=== PATIENT | female | born 1955 | race Caucasian/White ===

== ENCOUNTER 2017-10-21 12:16 | Emergency (ER) | payer MEDICAID, SELFPAY ==
--- NOTE | 2017-10-21 12:52 | XR_ITS ---
XR ankle LT min 3V HISTORY: Pain following injury ITS.REASON: TWISTED ANKLE STEPPING OFF OF PORCH ORDERING PHYSICIAN: Lisbeth Alberto PATIENT AGE: 62 years COMPARISON: None FINDINGS: Nondisplaced acute avulsion fracture involves the tip of the lateral malleolus with mild overlying soft tissue swelling. The fractures transverse in nature. No other significant anomalies are evident. IMPRESSION: Nondisplaced transverse fracture at the tip of the lateral malleolus.
--- NOTE | 2017-10-21 12:57 | PC.NURSE ---
RADIOLOGY CALLED AT THIS TIME
[2017-10-21 13:12] VITALS: BP 148/88; PULSE 74; RESP 18; TEMP 36.8; O2SAT 98; BMI 22.3
--- NOTE | 2017-10-21 13:18 | HMH.EDUTC ---
[facility] [place] Disposition Clinical Impression: Fracture of distal end of fibula Qualifiers: Encounter type: initial encounter Fracture type: closed Fracture morphology: other fracture Laterality: left Qualified Code(s): S82.832A - Other fracture of upper and lower end of left fibula, initial encounter for closed fracture Disposition: Home, Self-Care Condition on Discharge: Good Instructions: How to Use Crutches, How To Perform RICE (Rest, Ice, Compress, Elevate), How to Take Care of Your Splint Additional Instructions: * nonweight bearing until follow up with Dr. Chris * Rest * ice 15-20 mins 3-4 times a day * Splint to remain in place until you see Dr. Chris. Remember to check circulation like we discussed as the more you swell, the tighter your splint can get. * Elevate, elevate, elevate as discussed as much as possible to help reduce swelling and therefore, pain * naproxen every 12 hours as needed for pain and inflammation. If you need something more, you can take tylenol every 4 hours as needed as long as your primary care provider has told you it is ok to take both. * No additional anti-inflammatories like motrin, aleve, advil with the above amount of naproxen. You CAN still take Tylenol every 4 hours as needed if you need something more for pain. Prescriptions: Naproxen 500 mg PO BID PRN #28 tab PRN Reason: Moderate Pain Referrals: Yuliya Chris DPM [Physician] - (Stop by her office on your way out of the hospital today. I spoke to Ismael. Tell them you just left [facility], have a distal fibula fracture and want to follow up with Dr. Chris. Over the weekend, return to [facility] for any difficulty/complications with splint/circulation as we discussed.) Medical Decision Making - Moises Inquiry Pt receiving controlled substance: No Vital Signs: 10/21/17 13:12 10/21/17 15:12 Temperature 98.3 F 98.3 F Temperature Source Temporal Artery Scan Temporal Artery Scan Pulse Rate 74 Pulse Rate [Brachial] 74 Respiratory Rate 18 18 Blood Pressure 148/88 Blood Pressure [Right Arm] 148/88 Blood Pressure Mean [Right Arm] 108 Blood Pressure Position [Right Arm] Sitting 02 Sat by Pulse Oximetry 98 - Radiology Data #1 Image(s): Ankle Image Reviewed: Yes I reviewed the patient's radiology image w/the ED provider Preliminary Findings: Abnormal 1320: Attempted to review with ER MD, Dr. Aly. States she will lakia me back when she has a minute. 1400: Dr. aly still not available 1420: Dr. Aly returned call. Distal Fibula fracture, nondisplaced. - Reevaluation(s) Time: 14:25 Reevaluation #1: 1425:Pt doesn't want to remove jeans and wear gown home and doesn't want to cut off jeans at home. Refusing splinting until spouse returns with her a pair of looser pants. Still declining pain medication. 1505: Spouse returned [facility] [place] HPI - General Stated complaint: AO [id number] left ankle Time Seen by Provider: 10/21/17 13:18 Mode of Arrival: Wheelchair Source of Information: Patient Limitations: No Limitations Description of Symptoms (Recalled from Triage Doc. by RN): TWISTED LEFT ANKLE AFTER STEPPING OFF THE FRONT PORCH. PT REFUSES PAIN MEDS AT THIS TIME. HEENT Symptoms (Recalled from RN notes): No Resp Symptoms (Recalled from RN notes): No Skin Symptoms (Recalled from RN notes): No MS Symptoms (Recalled from RN notes): Yes Functional Status (Recalled from RN notes): NA - History of Present Illness Provider Complaint: c/o pain, swelling and limited ROM left ankle. Stepped off a porch step and rolled ankle around 1145 today. reports hearing a pop . No treatment prior to arrival. Declines multiple offers for pain medication. I have a high tolerance . Denies N/T. - Related Data Previous Rx's Medication Instructions Recorded Naproxen 500 mg PO BID PRN #28 tab 10/21/17 Allergies Allergy/AdvReac Type Severity Reaction Status Date / Time No Known Allergies Allergy Unverified 07/20/17 15:17 - Worker's Comp Is this
[2017-10-21 15:12] VITALS: BP 148/88; PULSE 74; RESP 18; TEMP 36.8; O2SAT 98
== END 2017-10-21 15:19 | disposition home or self-care (01) ==
PROVIDERS: Emergency Provider Nurse Practitioner Family; Family Provider Internal Medicine Adolescent Medicine
DX: S82.832A Other fracture of upper and lower end of left fibula, initial encounter for closed fracture (principal); X50.1XXA Overexertion from prolonged static or awkward postures, initial encounter; Y92.018 Other place in single-family (private) house as the place of occurrence of the external cause
CPT/HCPCS: 73610; 99203

== ENCOUNTER → 2017-11-22 08:52 | Outpatient (CLI) | payer MEDICAID, SELFPAY ==
--- NOTE | 2017-11-22 08:54 | XR_ITS ---
XR ankle wt bearing LT min 3V CLINICAL INDICATION: Follow-up fracture ORDERING PHYSICIAN: Yuliya Chris DPM PATIENT AGE: 62 years COMPARISON: 10/21/2017 FINDINGS: Simulated weight-bearing images performed once again shows transverse minimally distracted fracture involving the tip of the lateral malleolus with fracture line is somewhat less standing which may indicate early healing. There remains good alignment. IMPRESSION: Overall no change minimally distracted fracture of the tip the lateral malleolus
[2017-11-22 10:46] LABS: Basophils % 0.4 % (0.1-2.0); Eosinophils # 0.2 K/mm3 (0.0-0.4); Eosinophils % 2.5 % (0.1-12.0); Hematocrit 43.2 % (37.0-47.0); Hemoglobin 14.3 g/dL (12.2-16.2); Lymphocytes # 1.9 K/mm3 (0.7-4.5); Lymphocytes % 30.5 K/mm3 (10-50); Mean Corpuscular HGB Conc 33.1 g/dL (31.8-35.4); Mean Corpuscular Hemoglobin 29.9 pg (27.0-31.2); Mean Corpuscular Volume 90.5 fl (81-99); Mean Platelet Volume 8.5 fl (7.4-10.4); Monocytes # 0.3 K/mm3 (0.1-1.0); Monocytes % 4.9 % (1.7-9.3); Neutrophils # 3.8 K/mm3 (1.8-7.8); Neutrophils % 61.7 % (37.0-80.0); Platelet Count 225 K/mm3 (142-424); Red Blood Count 4.77 M/mm3 (4.20-5.40); White Blood Count 6.1 K/mm3 (4.8-10.8)
[2017-11-22 11:56] LABS: Alanine Aminotransferase 18 U/L (12-78); Albumin Level 4.9 gm/dL (3.4-5.0); Albumin/Globulin Ratio 1.4 (1.1-1.8); Alkaline Phosphatase 110 U/L (46-116); Anion Gap 14.4 mEq/L (5-15); Aspartate Amino Transferase 14 U/L (15-37); Bilirubin,Total 0.4 mg/dL (0.2-1.0); Blood Urea Nitrogen 18 mg/dL (7-18); Calcium 9.7 mg/dL (8.5-10.1); Carbon Dioxide 29 mmol/L (21.0-32.0); Chloride 102 mmol/L (98-107); Creatinine,Serum 0.84 mg/dL (0.55-1.02); Estimated Glomerular Filt Rate 69 ml/min (>60); GFR (African American) 84 ML/MIN (>60); Globulin 3.6 gm/dl (1.3-3.2); Glucose 90 mg/dL (74-106); Potassium 4.4 mmoL/L (3.5-5.1); Sodium 141 mmol/L (136-145); Total Protein,Serum 8.5 gm/dL (6.4-8.2); Triglycerides 126 mg/dL (30-200)
[2017-11-23 06:04] LABS: Vitamin D 25 Hydroxy 33.9 ng/mL (30.0-100.0)
== END ==
PROVIDERS: Visit Provider Podiatrist
DX: T14.8XXA Other injury of unspecified body region, initial encounter (principal)
CPT/HCPCS: 36415; 73610; 80053; 82652; 84478; 85025

== ENCOUNTER → 2017-11-22 10:01 | Outpatient (CLI) | payer MEDICAID, SELFPAY | PROVIDERS: Family Provider Internal Medicine Adolescent Medicine; PCP Internal Medicine Adolescent Medicine; Visit Provider Podiatrist | DX: T14.8XXA Other injury of unspecified body region, initial encounter (principal) ==

== ENCOUNTER → 2017-12-17 08:44 | Outpatient (CLI) | payer MEDICAID, SELFPAY ==
--- NOTE | 2017-12-17 08:47 | XR_ITS ---
XR ankle wt bearing LT min 3V HISTORY: Follow-up fracture ORDERING PHYSICIAN: Yuliya Chris DPM PATIENT AGE: 62 years Comparison: 11/22/2017, 10/21/2017 FINDINGS: A well-circumscribed transverse lucency is once again noted involving the tip of the lateral malleolus consistent with ununited nondisplaced avulsion fracture. No significant change. Otherwise negative. IMPRESSION: Ununited transverse nondisplaced avulsion fracture at the tip of the lateral malleolus
== END ==
PROVIDERS: PCP Internal Medicine Adolescent Medicine; Visit Provider Podiatrist
DX: T14.8XXA Other injury of unspecified body region, initial encounter (principal)
CPT/HCPCS: 73610

== ENCOUNTER → 2019-09-15 13:06 | Outpatient (CLI) | payer OTHER, SELFPAY ==
--- NOTE | 2019-09-15 13:15 | XR_ITS ---
PROCEDURE: XR SHOULDER RT MIN 2V CLINICAL INDICATION: ACUTE RT SHOULDER PAIN COMPARISON: No exams were available for comparison FINDINGS: There are minimal osteoarthritic changes of the acromioclavicular joint and glenohumeral joint. No fracture or dislocation. There is mild generalized osteopenia. IMPRESSION: Minimal degenerative changes Dictated by: Narayan Becerra MD 09/15/2019 13:21 Electronically signed by Narayan Becerra MD in [place] 09/15/2019 13:21
== END ==
PROVIDERS: PCP Nurse Practitioner Family; Visit Provider Nurse Practitioner Family
DX: M25.511 Pain in right shoulder (principal)
CPT/HCPCS: 73030

== ENCOUNTER 2019-10-03 14:00 | Outpatient (RCR) | payer OTHER, SELFPAY ==
--- NOTE | 2019-09-25 13:20 | HMH.OTOPEV ---
OT Inpatient Evaluation Rehab OT Outpatient Eval Start: 09/25/19 13:08 Freq: Status: Active Protocol: Document 09/25/19 13:08 RMGORDON (Rec: 09/25/19 13:19 [id number]) Electronically Signed By Jamal Herrera OT 09/25/19 13:08 Outpatient Therapy Subjective History Subjective History Pt is a 64 year old female who reports to therapy for initial evaluation to right shoulder. Pt reports she began having pain in her right shoulder ~1 month ago. She did have an accident in June, and fell into her bathtub. While falling, she tried to catch herself with the right arm. However, she did not have pain in the shoulder immediately after the accident. Her pain began over time. Pt does demonstrate with decreased AROM and strength at right shoulder. Pt does have a past injury to the R shoulder/ humerus. When she was 16 she fractured her humerus requiring surgery and a pinning. Pt explains she has never had normal interal rotation since the fracture, but all other ways were normal . Pt will continue to be seen twice a week in order to address all deficits and increase overall functional ability. Chief Complaint Pain,Stiff,Weakness Symptom Type Ache,Throb,Sharp,Dull,Stabbing Symptoms Relieved By Rest/Positioning,Heat Symptoms Aggravated By Physical Activity,Lifting Prior Functional Limitations None Current Functional Limitations Reaching,Lifting,Housework, Dressing,Driving,Sleeping, Recreation Activity Symptom Description Constant but Variable Level of pain today (0-10) 3 Pain scale - at its best (0-10) 2 Pain scale - at its worst (0-10) 8 Shoulder/Elbow Eval Shoulder Objective Measurements Shoulder ROM Right Shoulder ROM Limitations Pain Shoulder Abduction Active Range of 60 degrees Motion (degrees) Shoulder Flexion Active Range of Motion 55 degrees
== END 2019-10-03 14:05 | disposition home or self-care (01) ==
LOC: OT 14:00
PROVIDERS: PCP Nurse Practitioner Family; Visit Provider Nurse Practitioner Family
DX: M25.511 Pain in right shoulder (principal)
CPT/HCPCS: 97014; 97110; 97166; G0283

== ENCOUNTER 2024-08-02 10:36 | Emergency (ER) | payer MEDICARE, SELFPAY ==
[2024-08-02 10:54] VITALS: BP 181/87; PULSE 106; RESP 18; TEMP 37.2; O2SAT 99; BMI 26.3
[2024-08-02 11:05] LABS: UTC Influenza A Antigen Positive (Negative); UTC Influenza B Antigen Negative (Negative)
--- NOTE | 2024-08-02 11:07 | ED_ITS ---
Discharge Plan Disposition Patient Disposition: Home, Self-Care Condition: Good Prescriptions Prescriptions: New benzonatate 100 mg capsule 100 mg PO TIDP PRN (Reason: Cough) Qty: 30 0RF oseltamivir [Tamiflu] 75 mg capsule 75 mg PO BID 5 Days Qty: 10 0RF ondansetron 4 mg Tablet,Disintegrating 4 mg PO Q8H PRN (Reason: Nausea) Qty: 12 0RF Referrals Follow up/Referrals: Lindy Herrera APRN [Primary Care Provider] - See instructions Activity Restrictions/Add. Instructions Additional Instructions/Restrictions: Drink plenty of fluids. Take tylenol or ibuprofen for pain or fever. Take the medications as directed. Follow up with your regular doctor. GO TO THE ER FOR ANY WORSENING SYMPTOMS Clinical Impressions Clinical Impression: Influenza A Instructions Patient Instructions: DI for Influenza -- Adult, Ondansetron, Oseltamivir Print Language Print Language: Wolof Discharge ED Provider: Lalo Francisco [facility] General Stated complaint: chest conges. fever, nausea, diarrhea, chills, B/A Mode of Arrival: Ambulatory Source of Information: Patient Time Seen by Provider: 08/02/24 11:04 Description of Symptoms (Recalled from Triage Doc. by RN): FLU LIKE S/S, FEVERS 101 HEENT Symptoms (Recalled from RN notes): Yes Resp Symptoms (Recalled from RN notes): Yes Skin Symptoms (Recalled from RN notes): No MS Symptoms (Recalled from RN notes): No Functional Status (Recalled from RN notes): WNL Related Data Previous Rx's ?Medication ?Instructions ?Recorded benzonatate 100 mg capsule 100 mg PO TIDP PRN Cough #30 caps 08/02/24 ondansetron 4 mg disintegrating 4 mg PO Q8H PRN Nausea #12 tabs 08/02/24 tablet oseltamivir 75 mg capsule (Tamiflu) 75 mg PO BID 5 days #10 caps 08/02/24 Allergies Allergy/AdvReac Type Severity Reaction Status Date / Time No Known Allergies Allergy Unverified 09/20/18 13:50 Worker's Comp Is this a Worker's Comp case?: No [facility] Disclaimer: The information contained in this section may have been updated after the patient was seen, as this information can be updated by other users. 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 Have you lived/traveled outside [place] in past 30 days?: No Contact w/someone who lives/traveled outside [place] past 30 days?: No Exposure to someone with infectious disease in past 14 days?: No Do you have a fever (greater than 100.4 F or 38 C)?: Yes Have you tested positive for COVID-19: No Exposed to someone with COVID-19 in past 14 days?: No Do you have a sore throat?: No Do you have a cough?: Yes Do you have any weakness?: No Do you have any diarrhea?: Yes Are you experiencing any unusual bleeding?: No Do you have any muscle aches/pain?: No Do you have any abdominal pain?: No Are you experiencing loss of taste or smell?: No ROS Obtained: Yes All systems reviewed & no additional complaints except as documented Constitutional Constitutional: Reports chills and Reports fever(s) Eyes Eyes: Denies eye discharge ENT Ears, Nose, Mouth, and Throat: Reports as per HPI Cardiovascular Cardiovascular: Denies chest pain Respiratory Respiratory: Denies chest congestion and Reports cough Gastrointestinal Gastrointestingal: Reports nausea; Denies abdominal pain, constipation, cramping, diarrhea or vomiting Musculoskeletal Musculoskeletal: Denies arthralgias Integumentary/Breasts Skin/Breast: Denies rash Neurologic Neurologic: Denies paresthesias Physical Exam General General appearance: alert and in no apparent distress Eye Eye exam: Present normal appearance, PERRL and EOMI ENT ENT exam: Present mucous membranes moist and normal external ear exam Expanded ENT Exam External ear exam: Present normal external inspection TM/Canal exam: Bilateral TM: erythema and bulging Nose exam: Absent sinus tenderness Nasal speculum exam: Bilateral: normal Mouth exam: Present normal external inspection; Absent drooling Teeth exam: Present normal inspection Throat exam: Present tonsillar erythema and tonsillomegaly Neck Neck exam: Present normal inspection, full ROM and trachea midline; Absent tenderness, lymphadenopathy or thyromegaly Chest Chest inspection: Present normal inspection and symmetric chest wall rise; Absent tenderness or rash Respiratory Respiratory exam: Present normal lung sounds bilaterally; Absent respiratory distress, wheezes, stridor or accessory muscle use Cardiovascular Cardiovascular exam: Present regular rate, normal rhythm and normal heart sounds Abdominal Exam Abdominal exam: Present soft; Absent distention, tenderness, guarding, rebound or rigidity Extremities Exam Extremities exam: Present normal inspection, full ROM and normal capillary refill; Absent tenderness or calf tenderness Back Exam Back exam: Present normal inspection and full ROM; Absent tenderness Neurological Exam Neurological exam: Present alert and oriented X3 Psychiatric Psychiatric exam: Present normal affect and normal mood Skin Skin exam: Present warm, dry, intact and normal color Lymphatic Lymphatic Findings: no adenopathy Medical Decision Making Medical Records Medical records reviewed: No I reviewed the patient's medical records. Screening: Per USPSTF and CDC recommendations, given the prevalence of disease in our region, it is our hospital?s policy to screen for HIV and viral Hepatitis for all patients aged 18 and over and those with ongoing risk factors. Moises Inquiry Pt receiving controlled substance: No Vital Signs: 08/02/24 10:54 Temperature 98.9 F Temperature Source Oral Pulse Rate [Left Brachial] 106 H Respiratory Rate 18 Blood Pressure [Left Arm] 181/87 H Blood Pressure Mean [Left Arm] 118 02 Sat by Pulse Oximetry 99 Lab Data Lab Results 08/02/24 10:55: Influenza Type A Ag Positive A, Influenza Type B Ag Negative
[2024-08-02 11:54] VITALS: BP 181/87; PULSE 106; RESP 18; TEMP 37.2
== END 2024-08-02 12:04 | disposition home or self-care (01) ==
PROVIDERS: Emergency Provider Nurse Practitioner Family; PCP Nurse Practitioner Family
DX: J09.X2 Influenza due to identified novel influenza A virus with other respiratory manifestations (principal); R50.9 Fever, unspecified; R05.9 Cough, unspecified; R11.0 Nausea
CPT/HCPCS: 87804; 99212; G0381

== ENCOUNTER 2025-01-12 14:33 | Outpatient (CLI) | payer MEDICARE, MEDICAID, SELFPAY ==
--- NOTE | 2025-01-12 14:37 | XR_ITS ---
FINAL REPORT CLINICAL HISTORY: left shoulder pain COMPARISON: None FINDINGS: LEFT SHOULDER 3 views of the left shoulder were obtained. There is no acute fracture or dislocation. Visualized joint spaces are normally aligned. Soft tissues are unremarkable. IMPRESSION: No acute bony abnormality. Reviewed, Interpreted and Dictated by Jevon Ashley MD Transcribed by Amina Jacome Authenticated and [facility]
== END 2025-01-12 23:59 | disposition home or self-care (01) ==
LOC: RAD 14:34
PROVIDERS: Visit Provider Nurse Practitioner Family
DX: M25.512 Pain in left shoulder (principal)
CPT/HCPCS: 73030